=== PATIENT | male | born 1960 | race Hispanic/Latino ===

== ENCOUNTER 2016-09-18 09:20 | Day surgery (SDC) | payer OTHER ==
[2016-09-18 10:15] VITALS: BMI 30.4
[2016-09-18] MEDS ORDERED: Lactated Ringer's 500 ML IV ONE ×2 (11:45)
[2016-09-18] MEDS ORDERED: Propofol 10 mg/ml Inj (20 ML) ONE (12:03)
[2016-09-18] MEDS ORDERED: Phenylephrine 10 mg/ml Inj ONE (12:12)
[2016-09-18 12:49] VITALS: RESP 12
[2016-09-18 13:58] VITALS: BP 106/58; PULSE 62; TEMP 98.2; O2SAT 98
== END 2016-09-18 13:40 | disposition home or self-care (01) ==
LOC: C.ENDO 09:20
PROVIDERS: ATTEND Internal Medicine Gastroenterology
DX: R10.13 Epigastric pain (principal); K31.84 Gastroparesis; K31.7 Polyp of stomach and duodenum; K21.0 Gastro-esophageal reflux disease with esophagitis; K25.9 Gastric ulcer, unspecified as acute or chronic, without hemorrhage or perforation
CPT/HCPCS: 43250; 82948; 88305; 88313; 88342; J2370; J2704; J7120

== ENCOUNTER 2017-01-18 08:17 | Day surgery (SDC) | payer OTHER ==
[2017-01-18 09:48] VITALS: BMI 31.4
[2017-01-18] MEDS ORDERED: Lactated Ringer's 1,000 ML IV ONE (11:00)
[2017-01-18] MEDS ORDERED: Midazolam 2 MG/2 ML VIAL ONE (11:07)
[2017-01-18] MEDS ORDERED: Propofol 10 mg/ml Inj (20 ML) ONE (11:08)
[2017-01-18] MEDS ORDERED: Lactated Ringer's 500 ML IV SCH (11:30)
[2017-01-18 11:56] VITALS: TEMP 97.1
[2017-01-18 12:34] VITALS: PULSE 59; RESP 16; O2SAT 98
[2017-01-18 12:57] VITALS: BP 97/51
== END 2017-01-18 12:54 | disposition home or self-care (01) ==
LOC: C.ENDO 08:17
PROVIDERS: ATTEND Internal Medicine
DX: K31.9 Disease of stomach and duodenum, unspecified (principal); K31.84 Gastroparesis; Z87.19 Personal history of other diseases of the digestive system; K29.70 Gastritis, unspecified, without bleeding; K86.9 Disease of pancreas, unspecified
CPT/HCPCS: 43239; 82948; 88305; J2250; J2704; J3010; J7120

== ENCOUNTER 2017-02-01 06:53 | Day surgery (SDC) | payer OTHER ==
[2017-02-01 07:22] VITALS: BMI 32.3
[2017-02-01] MEDS ORDERED: Propofol 10 mg/ml Inj (20 ML) ONE (09:11)
[2017-02-01 09:25] VITALS: O2SAT 100
[2017-02-01 10:15] VITALS: TEMP 98
[2017-02-01 11:06] VITALS: BP 118/60; PULSE 66; RESP 14
== END 2017-02-01 11:30 | disposition home or self-care (01) ==
LOC: C.ENDO 06:53
PROVIDERS: ATTEND Internal Medicine
DX: D12.0 Benign neoplasm of cecum (principal); R19.7 Diarrhea, unspecified; K64.8 Other hemorrhoids; D12.4 Benign neoplasm of descending colon
CPT/HCPCS: 45388; 82948; 88305; 88313; 88342; J2704

== ENCOUNTER → 2018-07-22 | Outpatient (CLI) | payer OTHER | LOC: C.LAB 10:29 | DX: F25.9 Schizoaffective disorder, unspecified (principal) ==